=== PATIENT | female | born 1980 | race Caucasian/White ===

== ENCOUNTER 2017-02-21 17:45 | Inpatient (IN) | payer OTHER ==
[~2017-02-21] VITALS: Ht 177.8 cm; Wt 72.1 kg
[2017-02-21] MEDS ORDERED: CYMBALTA60 MG PO (17:52)
[2017-02-21] MEDS ORDERED: BUPROPION HCL150 M1 PO (17:52)
[2017-02-21 18:20] LABS: HEMOGLOBIN 13.8 gm/dL (12.0-15.0); MANUAL DIFF YES; MCH 32.2 pg (26.0-34.0); MCV 97.5 fL (80.0-100.0); PLATELET COUNT 271 thou/uL (150-400); RDW 12.9 % (10.5-14.5)
[2017-02-21 18:24] LABS: URINE BILIRUBIN NEGATIVE (Negative); URINE BLOOD 2+ (Negative); URINE COLOR YELLOW; URINE GLUCOSE-RANDOM* NEGATIVE (Negative); URINE KETONES 1+ (Negative); URINE NITRITE POSITIVE (Negative); URINE PROTEIN (DIPSTICK) TRACE (Negative); URINE SPECIFIC GRAVITY <= 1.005 (1.003-1.035); URINE UROBILINOGEN 0.2 E.U./dl (0.2-1.0)
[2017-02-21 18:29] LABS: CALCIUM 9.1 mg/dL (8.5-10.1); CASTS None Seen /LPF (None Seen); CREATININE 1.2 mg/dL (0.6-1.0); CRYSTALS None Seen /LPF (None Seen); POTASSIUM 3.8 mmol/L (3.5-5.1); SQUAMOUS 4-10 Moderate /LPF (0-3); URINE WBC >25 Many /HPF (0-5)
[2017-02-21 18:30] LABS: URINE RBC 0-2 Rare /HPF (0-2)
[2017-02-21 18:33] LABS: TOTAL BILIRUBIN 0.5 mg/dL (<0.1-1.0)
[2017-02-21 18:57] LABS: ABSOLUTE NEUTROPHILS 20.7 thou/uL (1.4-8.2); TOTAL CELL COUNT 100
[2017-02-21 20:00] VITALS: BP 111/69
[2017-02-21 22:36] VITALS: BP 104/59
[2017-02-21 23:34] VITALS: BP 94/61
[2017-02-22 05:54] VITALS: BP 72/44
[2017-02-22 06:13] VITALS: BP 91/58
[2017-02-22 07:17] VITALS: BP 92/59
[2017-02-22 08:30] LABS: HEMATOCRIT 35.3 % (37.0-47.0); MCH 32.3 pg (26.0-34.0); MCHC 33.5 g/dL (28.0-37.0); MCV 96.4 fL (80.0-100.0); RBC 3.66 mil/uL (4.20-5.00); RDW 12.8 % (10.5-14.5); WBC 21.8 thou/uL (4.0-11.0)
[2017-02-22 08:31] LABS: HEMOGLOBIN 11.8 gm/dL (12.0-15.0)
[2017-02-22 09:03] LABS: POTASSIUM 4.2 mmol/L (3.5-5.1)
[2017-02-22 11:24] VITALS: BP 99/65
[2017-02-22 15:10] VITALS: BP 107/70
[2017-02-22 19:24] VITALS: BP 105/70
[2017-02-23 04:45] LABS: HEMATOCRIT 34.5 % (37.0-47.0); HEMOGLOBIN 11.3 gm/dL (12.0-15.0); MCH 32.1 pg (26.0-34.0); MCHC 32.9 g/dL (28.0-37.0); MCV 97.5 fL (80.0-100.0); PLATELET COUNT 221 thou/uL (150-400); RBC 3.54 mil/uL (4.20-5.00); WBC 19.4 thou/uL (4.0-11.0)
[2017-02-23 04:58] LABS: MANUAL DIFF YES
[2017-02-23 05:01] LABS: CALCIUM 8.1 mg/dL (8.5-10.1); CREATININE 0.9 mg/dL (0.6-1.0); POTASSIUM 4.3 mmol/L (3.5-5.1)
[2017-02-23 07:42] VITALS: BP 103/64
[2017-02-23 08:59] LABS: ABSOLUTE NEUTROPHILS 17.7 thou/uL (1.4-8.2); PLATELET ESTIMATE NORMAL; TOTAL CELL COUNT 100
[2017-02-23 11:19] VITALS: BP 116/78
[2017-02-23 15:15] VITALS: BP 108/70
[2017-02-23 19:24] VITALS: BP 106/68
[2017-02-24 04:13] VITALS: BP 111/72
[2017-02-24 08:04] VITALS: BP 115/75
[2017-02-24] MEDS ORDERED: CEFUROXIME500 MG PO (10:10)
[2017-02-24] MEDS ORDERED: TRAMADOL 50 MG50 MG PO (10:15)
[2017-02-24 11:35] VITALS: BP 115/75
== END 2017-02-24 12:44 | disposition home or self-care (01) | DRG 871 ==
LOC: ER 17:45 → 4W 19:29 → EROBS 19:29 → 4W 20:20
PROVIDERS: Internal Medicine Endocrinology, Diabetes & Metabolism; Nurse Practitioner Acute Care; Nurse Practitioner Family
DX: A41.9 Sepsis, unspecified organism (principal); N17.0 Acute kidney failure with tubular necrosis; N12 Tubulo-interstitial nephritis, not specified as acute or chronic; R65.10 Systemic inflammatory response syndrome (SIRS) of non-infectious origin without acute organ dysfunction; F41.9 Anxiety disorder, unspecified; F32.9 Major depressive disorder, single episode, unspecified; Z88.0 Allergy status to penicillin; Z79.899 Other long term (current) drug therapy
CPT/HCPCS: 10045

== ENCOUNTER → 2018-08-11 | Outpatient (CLI) | payer OTHER ==
[~2018-08-11] MED LIST: BUPROPION HCL150 M1 PO; CEFUROXIME500 MG PO; CYMBALTA60 MG PO; TRAMADOL 50 MG50 MG PO
== END ==
LOC: RAD 09:32
DX: M25.572 Pain in left ankle and joints of left foot (principal); W19.XXXA Unspecified fall, initial encounter; Y93.89 Activity, other specified; Y92.89 Other specified places as the place of occurrence of the external cause; Y99.8 Other external cause status